=== PATIENT | female | born 1955 ===

== ENCOUNTER 2019-03-10 05:56 | Inpatient (IN) | payer SELFPAY ==
[2019-03-10] MEDS ORDERED: ASPIRIN PO ONE (06:25)
[2019-03-10] MEDS ORDERED: LOPRESSOR IV ONE ×3 (06:27→08:15)
--- NOTE | 2019-03-10 06:27 | Emergency Department Report ---
ED Chest Pain HPI - General Stated Complaint: BILATERAL LEG PAIN Time Seen by Provider: 03/10/19 06:24 Source: patient, EMS Mode of arrival: Stretcher Limitations: Language Barrier - History of Present Illness Initial Comments: Patient is 63-year-old female presents emergency room with complaints of chest pain radiating to her left arm. Patient also complains of left lower extremity pain. Patient states the pain is severe. History is difficult to do to language barrier. MD Complaint: chest pain -: Sudden Onset: during rest Pain Location: substernal, left chest Pain Radiation: LUE Severity: severe Consistency: constant - Related Data Home Medications Medication Instructions Recorded Confirmed Last Taken traMADol [Ultram] 50 mg PO TID PRN 03/10/19 03/10/19 Unknown Allergies Allergy/AdvReac Type Severity Reaction Status Date / Time No Known Allergies Allergy Verified 03/10/19 08:12 Heart Score - HEART Score History: Moderately suspicious EKG: Non-specific Age: 45-65 Risk factors: No known risk factors Troponin: < normal limit HEART Score: 3 ED Review of Systems ROS: Stated complaint: BILATERAL LEG PAIN Other details as noted in HPI Comment: language barrier ED Past Medical Hx - Past Medical History Previous Medical History?: Yes Hx Hypertension: Yes - Surgical History Past Surgical History?: No - Family History Family history: no significant - Social History Smoking Status: Unknown if ever smoked Substance Use Type: None - Medications Home Medications: Home Medications Medication Instructions Recorded Confirmed Last Taken Type traMADol [Ultram] 50 mg PO TID PRN 03/10/19 03/10/19 Unknown History ED Physical Exam - General Limitations: Language Barrier General appearance: alert, in no apparent distress - Head Head exam: Present: atraumatic, normocephalic - Eye Eye exam: Present: normal appearance - ENT ENT exam: Present: mucous membranes moist - Neck Neck exam: Present: normal inspection - Respiratory Respiratory exam: Present: normal lung sounds bilaterally. Absent: respiratory distress, wheezes, rales - Cardiovascular Cardiovascular Exam: Present: regular rate, normal rhythm. Absent: systolic murmur, diastolic murmur, rubs, gallop - GI/Abdominal GI/Abdominal exam: Present: soft, normal bowel sounds - Rectal Rectal exam: Present: deferred - Extremities Exam Extremities exam: Present: normal inspection - Back Exam Back exam: Present: normal inspection - Neurological Exam Neurological exam: Present: alert - Skin Skin exam: Present: warm, dry, intact, normal color. Absent: rash ED Course Vital Signs 03/10/19 03/10/19 03/10/19 06:21 06:27 06:31 Temperature 98.2 F Pulse Rate 102 H 94 H 94 H Pulse Rate [ Anterior Bilateral Throughout] Respiratory 38 H 23 22 Rate Respiratory Rate [Anterior Bilateral Throughout] Blood Pressure 201/83 201/83 201/83 Blood Pressure 201/83 [Left] O2 Sat by Pulse 88 100 100 Oximetry 03/10/19 03/10/19 03/10/19 06:36 06:45 06:52 Temperature Pulse Rate 93 H 95 H Pulse Rate [ Anterior Bilateral Throughout] Respiratory 31 H Rate Respiratory Rate [Anterior Bilateral Throughout] Blood Pressure 201/83 179/82 Blood Pressure [Left] O2 Sat by Pulse 88 100 Oximetry 03/10/19 03/10/19 03/10/19 07:01 07:15 07:31 Temperature Pulse Rate 94 H 97 H 95 H Pulse Rate [ Anterior Bilateral Throughout] Respiratory 17 20 30 H Rate Respiratory Rate [Anterior Bilateral Throughout] Blood Pressure 179/82 179/82 179/82 Blood Pressure [Left] O2 Sat by Pulse 98 97 96 Oximetry 03/10/19 03/10/19 03/10/19 07:43 07:45 08:00 Temperature 98.1 F Pulse Rate 94 H 90 88 Pulse Rate [ Anterior Bilateral Throughout] Respiratory 29 H 24 31 H Rate Respiratory Rate [Anterior Bilateral Throughout] Blood Pressure 191/83 171/85 Blood Pressure 191/83 [Left] O2 Sat by Pulse 98 97 97 Oximetry 03/10/19 03/10/19 03/10/19 08:15 08:25 08:31 Temperature Pulse Rate 91 H 94 H 70 Pulse Rate [ Anterior Bilateral Throughout] Respiratory 34 H 26 H Rate Respiratory Rate [Anterior Bilateral Throughout] Blood Pressure 183/85 191/83 201/86 Blood Pressure [Left] O2 Sat by Pulse 97 99 Oximetry 03/10/19 03/10/19 03/10/19 08:45 09:23 09:30 Temperature Pulse Rate 71 83 79 Pulse Rate [ Anterior Bilateral Throughout] Respiratory 13 29 H 22 Rate Respiratory Rate [Anterior Bilateral Throughout] Blood Pressure 201/86 189/91 164/75 Blood Pressure [Left] O2 Sat by Pulse 99 96 98 Oximetry 03/10/19 03/10/19 03/10/19 09:58 10:13 10:50 Temperature Pulse Rate 88 83 88 Pulse Rate [ 85 Anterior Bilateral Throughout] Respiratory 18 16 Rate Respiratory 20 Rate [Anterior Bilateral Throughout] Blood Pressure 205/98 Blood Pressure 205/98 142/70 [Left] O2 Sat by Pulse 100 98 Oximetry 03/10/19 14:13 Temperature Pulse Rate 76 Pulse Rate [ Anterior Bilateral Throughout] Respiratory 16 Rate Respiratory Rate [Anterior Bilateral Throughout] Blood Pressure Blood Pressure 160/82 [Left] O2 Sat by Pulse 96 Oximetry - Reevaluation(s) Reevaluation #1: Patient is currently wheezing. We are still unable to ascertain which limits the patient speaks and contact a ac/dc rewinder that has medicated with the patient. Head CT done since we are not quite sure the patient's baseline orientation. 03/10/19 09:15 Family is at bedside and states the patient is here because she's having left chest pain radiating to her left arm and bilateral leg pain. Patient also complains of bodyache. Patient denies fever and chills. Patient denies night sweats. Patient is A&OX3. Patient answers questions appropriately with her son translating. 03/10/19 09:53 Reevaluation #2: I discussed all results with patient and family. I discussed plan of care with patient and family. Patient and family agree with plan of care. Patient will be admitted to the hospitalist service. 03/10/19 10:58 - Consultations Consultation #1: Hospitalist consulted for admission. Hospitalist admit patient. Bridge orders placed. 03/10/19 09:56 JONY score - Jony Score Age > 65: (0) No Aspirin use within the Past 7 Days: (1) Yes 3 or more CAD Risk Factors: (1) Yes 2 or more Angina events in past 24 hrs: (1) Yes Known CAD with more than 50% Stenosis: (0) No Elevated Cardiac Markers: (0) No ST Deviation Greater than 0.5mm: (0) No JONY Score: 3 ED Medical Decision Making - Lab Data Result diagrams: 03/10/19 06:53 03/10/19 06:53 - EKG Data -: EKG Interpreted by [facility] EKG shows normal: sinus rhythm, axis, intervals, QRS complexes, ST-T waves Rate: normal - Radiology Data Radiology results: report reviewed, image reviewed CHEST 1 VIEW INDICATION: Chest Pain. COMPARISON: None FINDINGS: Support devices: None. Heart: Within normal limits. Lungs/Pleura: Scattered calcified granulomata and left apical pleural thickening versus consolidation. Right lung is otherwise clear. Additional findings: None. IMPRESSION: 1. Left apical findings as outlined above. Consider follow-up CT chest with contrast. DUPLEX DOPPLER LOWER EXTREMITY VEINS, BILATERAL INDICATION: Bilateral leg pain for one month, left greater than right. TECHNIQUE: Duplex doppler imaging was performed through the veins of both lower extremities using venous compression and other maneuvers. COMPARISON: No relevant prior imaging study available. FINDINGS: Right Common femoral vein: Negative. Right Superficial femoral vein: Negative. Right Popliteal vein: Negative. Right Calf veins: Negative. Left Common femoral vein: Negative. Left Superficial femoral vein: Negative. Left Popliteal vein: Negative. Left Calf veins: Negative. Additional findings: None.. IMPRESSION: No sonographic evidence for DVT in either lower extremity. CTA CHEST WITH CONTRAST INDICATION : Chest pain, hypoxia. TECHNIQUE: Axial imaging performed through the chest, with contrast bolus timing set to maximize opacification of the pulmonary arteries. Sagittal and coronal reformatted images. 3-plane MIP reformatted images were obtained. All CT scans at this location are performed using CT dose reduction for ALARA by means of automated exposure control. 100 mL of intravenous contrast administered. COMPARISON: None FINDINGS: Bolus: Contrast bolus timing is adequate. PTE: No filling defect is present to suggest PTE. Mediastinum: Heart and great vessels appear normal. No pathologic mediastinal adenopathy. Lungs: There is moderate chronic subpleural scarring and cystic bronchiectasis in the left apical region and superior lingula. This appears chronic. The remainder of the lungs are well-aerated. No underlying interstitial lung disease is appreciated. No pleural effusion or pneumothorax. Bones: Degenerative changes in the spine with nothing acute. Upper abdomen: Limited imaging of the upper abdomen shows nothing acute. IMPRESSION: No evidence for pulmonary embolus. Chronic scarring and bronchiectasis in the left upper lobe as described. CT HEAD WITHOUT CONTRAST INDICATION / CLINICAL INFORMATION: Altered mental status. TECHNIQUE: Axial imaging performed from the skull apex through the skull base w ithout the use of contrast. Sagittal and coronal reformatted images. All CT scans at this location are performed using CT dose reduction for ALARA by means of automated exposure control. COMPARISON: None available. FINDINGS: CEREBRAL PARENCHYMA: No significant abnormality. No acute territorial infarct. HEMORRHAGE: None. EXTRA-AXIAL SPACES: Normal in size and morphology for the patient's age. VENTRICULAR SYSTEM: Normal in size and morphology for the patient's age. MIDLINE SHIFT OR HERNIATION: None. CEREBELLUM / BRAINSTEM: No significant abnormality. CALVARIUM: No significant abnormality. ORBITS: Normal as visualized. PARANASAL SINUSES / MASTOID AIR CELLS: There is mild mucosal thickening throughout the right frontal, ethmoid and left maxillary sinus. The left mastoid air cells are hypoplastic. SOFT TISSUES of HEAD: No significant abnormality. ADDITIONAL FINDINGS: None. IMPRESSION: No acute intracranial abnormality. Mild chronic sinus disease. - Medical Decision Making Patient is a 63-year-old female that presents emergency room with complaints of chest pain and leg pain. Patient's orientation was difficult to establish due to language barrier and No family at bedside, So a CT of the head was done. CT is negative. Patient's family eventually showed up and helped with Beka Choi. Patient's CT of the chest negative for PE. Patient's chest x-ray shows a left upper lobe pneumonia. Patient's CTA shows chronic atelectasis and bronchiectasis. Patient given antibiotics. Patient admitted to the hospitalist service. Patient found to be initially hypoxic and placed on occiput. - Differential Diagnosis PE. Pneumonia. Chest pain. ACS. Critical Care Time: Yes Critical care attestation.: If time is entered above; I have spent that time in minutes in the direct care of this critically ill patient, excluding procedure time. Critical Care Time: 35 minutes ED Disposition Clinical Impression: Hypoxia, Leg pain, bilateral, Malignant hypertension Chest pain Qualifiers: Chest pain type: unspecified Qualified Code(s): R07.9 - Chest pain, unspecified Hypertension Qualifiers: Hypertension type: essential hypertension Qualified Code(s): I10 - Essential (primary) hypertension Pneumonia Qualifiers: Pneumonia type: due to unspecified organism Laterality: left Lung location: upper lobe of lung Qualified Code(s): J18.1 - Lobar pneumonia, unspecified organism Disposition: OP ADMIT IP TO THIS HOSP Is pt being admited?: Yes Does the pt Need Aspirin: No Condition: Critical Time of Disposition: 10:08
--- NOTE | 2019-03-10 07:01 | XRay Report ---
CHEST 1 VIEW INDICATION: Chest Pain. COMPARISON: None FINDINGS: Support devices: None. Heart: Within normal limits. Lungs/Pleura: Scattered calcified granulomata and left apical pleural thickening versus consolidation . Right lung is otherwise clear. Additional findings: None. IMPRESSION: 1. Left apical findings as outlined above. Consider follow-up CT chest with contrast. Signer Name: Case Adkins MD Signed: 03/10/2019 6:56 AM Workstation Name: [id number]
[2019-03-10 07:10] LABS: Basophils # (Auto) 0.1 K/mm3 (0.0-0.1); Eosinophils # (Auto) 0.9 K/mm3 (0.0-0.4); Eosinophils % (Auto) 9.7 % (0.0-4.3); Hematocrit 30.8 % (30.3-42.9); Hemoglobin 10.1 gm/dl (10.1-14.3); Lymphocytes # (Auto) 1.7 K/mm3 (1.2-5.4); Lymphocytes % (Auto) 17.9 % (13.4-35.0); Mean Corpuscular HGB Conc 33 % (30-34); Mean Corpuscular Volume 83 fl (79-97); Monocytes # (Auto) 0.7 K/mm3 (0.0-0.8); Monocytes % (Auto) 7.6 % (0.0-7.3); Platelet Count 385 K/mm3 (140-440); Red Blood Count 3.71 M/mm3 (3.65-5.03); Red Cell Distribution Width 15.4 % (13.2-15.2)
[2019-03-10 07:35] LABS: Alanine Aminotransferase 15 units/L (7-56); Albumin 3.4 g/dL (3.9-5); BUN/Creatinine Ratio 27; Blood Urea Nitrogen 19 mg/dL (7-17); Calcium 9.1 mg/dL (8.4-10.2); Hemolysis Index 6
[2019-03-10 08:39] LABS: Bilirubin,Urine NEG (Negative); Blood,Urine NEG (Negative); Color,Urine Straw (Yellow); Protein,Urine <15 mg/dL mg/dL (Negative); Urobilinogen,Urine < 2.0 mg/dL (<2.0); WBC,Urine < 1.0 /HPF (0.0-6.0)
[2019-03-10] MEDS ORDERED: MAXIPIME/NS 2 GM/100 ML 2 GM/100 ML BAG IV ONE (08:43)
--- NOTE | 2019-03-10 09:07 | Vascular Lab Report ---
DUPLEX DOPPLER LOWER EXTREMITY VEINS, BILATERAL INDICATION: Bilateral leg pain for one month, left greater than right. TECHNIQUE: Duplex doppler imaging was performed through the veins of both lower extremities using ve nous compression and other maneuvers. COMPARISON: No relevant prior imaging study available. FINDINGS: Right Common femoral vein: Negative. Right Superficial femoral vein: Negative. Right Popliteal vein: Negative. Right Calf veins: Negative. Left Common femoral vein: Negative. Left Superficial femoral vein: Negative. Left Popliteal vein: Negative. Left Calf veins: Negative. Additional findings: None.. IMPRESSION: No sonographic evidence for DVT in either lower extremity. Signer Name: Ceferino Ronquillo Jr, MD Signed: 03/10/2019 9:03 AM Workstation Name: [id number]
[2019-03-10] MEDS ORDERED: DUONEB *Not for PRN Use IH ONE (09:26)
[2019-03-10] MEDS ORDERED: SOLU-Medrol IV ONE (09:26)
--- NOTE | 2019-03-10 09:53 | Cat Scan Report ---
CT HEAD WITHOUT CONTRAST INDICATION / CLINICAL INFORMATION: Altered mental status. TECHNIQUE: Axial imaging performed from the skull apex through the skull base without the use of cont rast. Sagittal and coronal reformatted images. All CT scans at this location are performed using CT dose reduction for ALARA by means of automated exposure control. COMPARISON: None available. FINDINGS: CEREBRAL PARENCHYMA: No significant abnormality. No acute territorial infarct. HEMORRHAGE: None. EXTRA-AXIAL SPACES: Normal in size and morphology for the patient's age. VENTRICULAR SYSTEM: Normal in size and morphology for the patient's age. MIDLINE SHIFT OR HERNIATION: None. CEREBELLUM / BRAINSTEM: No significant abnormality. CALVARIUM: No significant abnormality. ORBITS: Normal as visualized. PARANASAL SINUSES / MASTOID AIR CELLS: There is mild mucosal thickening throughout the right frontal, ethmoid and left maxillary sinus. The left mastoid air cells are hypoplastic. SOFT TISSUES of HEAD: No significant abnormality. ADDITIONAL FINDINGS: None. IMPRESSION: No acute intracranial abnormality. Mild chronic sinus disease. Signer Name: Ceferino Ronquillo Jr, MD Signed: 03/10/2019 9:49 AM Workstation Name: [id number]
--- NOTE | 2019-03-10 09:56 | Cat Scan Report ---
CTA CHEST WITH CONTRAST INDICATION : Chest pain, hypoxia. TECHNIQUE: Axial imaging performed through the chest, with contrast bolus timing set to maximize opa cification of the pulmonary arteries. Sagittal and coronal reformatted images. 3-plane MIP reformatte d images were obtained. All CT scans at this location are performed using CT dose reduction for ALAR A by means of automated exposure control. 100 mL of intravenous contrast administered. COMPARISON: None FINDINGS: Bolus: Contrast bolus timing is adequate. PTE: No filling defect is present to suggest PTE. Mediastinum: Heart and great vessels appear normal. No pathologic mediastinal adenopathy. Lungs: There is moderate chronic subpleural scarring and cystic bronchiectasis in the left apical re gion and superior lingula. This appears chronic. The remainder of the lungs are well-aerated. No unde rlying interstitial lung disease is appreciated. No pleural effusion or pneumothorax. Bones: Degenerative changes in the spine with nothing acute. Upper abdomen: Limited imaging of the upper abdomen shows nothing acute. IMPRESSION: No evidence for pulmonary embolus. Chronic scarring and bronchiectasis in the left upper lobe as described. Signer Name: Ceferino Ronquillo Jr, MD Signed: 03/10/2019 9:52 AM Workstation Name: [id number]
[2019-03-10] MEDS ORDERED: APRESOLINE IV ONE (10:07)
[2019-03-10] MEDS ORDERED: DILAUDID IV ONE (10:20)
--- NOTE | 2019-03-10 12:40 | Consultation ---
History of Present Illness Consult date: 03/10/19 Reason for consult: chest pain Medications and Allergies Allergies Allergy/AdvReac Type Severity Reaction Status Date / Time No Known Allergies Allergy Verified 03/10/19 08:12 Home Medications Medication Instructions Recorded Confirmed Last Taken Type traMADol [Ultram] 50 mg PO TID PRN 03/10/19 03/10/19 Unknown History Physical Examination Vital signs: Vital Signs Temp Pulse Resp BP Pulse Ox 98.2 F 102 H 38 H 201/83 88 03/10/19 06:21 03/10/19 06:21 03/10/19 06:21 03/10/19 06:21 03/10/19 06:21 Results - Laboratory Findings CBC and BMP: 03/10/19 06:53 03/10/19 06:53 Abnormal lab findings: Abnormal Labs 03/10/19 03/10/19 06:53 06:53 MCH 27 L RDW 15.4 H [place] % (Auto) 7.6 H Eos % (Auto) 9.7 H Eos # 0.9 H BUN 19 H Glucose 109 H Total Protein 8.6 H Albumin 3.4 L
--- NOTE | 2019-03-10 15:22 | History and Physical Report ---
History of Present Illness Date of examination: 03/10/19 Date of admission: 03/10/19 10:16 Chief complaint: Chest pain Medications and Allergies Allergies Allergy/AdvReac Type Severity Reaction Status Date / Time No Known Allergies Allergy Verified 03/10/19 08:12 Home Medications Medication Instructions Recorded Confirmed Last Taken Type traMADol [Ultram] 50 mg PO TID PRN 03/10/19 03/10/19 Unknown History Exam - Physical Exam Narrative exam: Gen: Not in acute distress, lying in bed, HEENT: Normocephalic, atraumatic Neck: supple, no JVD Heart: S1 and S2 reg, no murmurs, rubs or gallop Lungs: Clear, no crackles, no rhonchi Abd: soft, non tender, non distended, normal BS, Ext: No edema, no clubbing, no cyanosis Neuro: awake,alert,oriented, moves all ext - Constitutional Vitals: Temp Pulse Resp BP Pulse Ox 98.1 F 76 16 160/82 96 03/10/19 07:43 03/10/19 14:13 03/10/19 14:13 03/10/19 14:13 03/10/19 14:13 Results - Labs CBC & Chem 7: 03/10/19 06:53 03/10/19 06:53 Labs: Abnormal lab results 03/10/19 03/10/19 Range/Units 06:53 06:53 MCH 27 L (28-32) pg RDW 15.4 H (13.2-15.2) % [place] % (Auto) 7.6 H (0.0-7.3) % Eos % (Auto) 9.7 H (0.0-4.3) % Eos # 0.9 H (0.0-0.4) K/mm3 BUN 19 H (7-17) mg/dL Glucose 109 H (65-100) mg/dL Total Protein 8.6 H (6.3-8.2) g/dL Albumin 3.4 L (3.9-5) g/dL Assessment and Plan Chest pain Admit to Tele Aspirin Keep NPO after midnight For stress test in am Hypertensive urgency Hydralazine iv prn Start Norvasc, Hydralazine Bronchiectasis left upper lobe Consult Pulm I discussed with Dr. Vang No antibiotics needed Full code status
[2019-03-10] MEDS ORDERED: ZOFRAN IV PRN (15:23)
[2019-03-10] MEDS ORDERED: PROVENTIL IH PRN (15:23)
[2019-03-10] MEDS ORDERED: MORPHINE IV PRN (15:23)
[2019-03-10] MEDS ORDERED: SODIUM CHLORIDE FLUSH SYRINGE 10 ML IV PRN (15:23)
[2019-03-10] MEDS ORDERED: TYLENOL PO PRN (15:23)
[2019-03-10] MEDS ORDERED: APRESOLINE IV PRN (15:25)
[2019-03-10] MEDS ORDERED: D5/0.45NS 1,000 ML IV SCH (16:00)
[2019-03-10] MEDS: NORVASC PO SCH (17:21)
[2019-03-10] MEDS: APRESOLINE PO SCH ×2 (17:21→22:55)
[2019-03-10] MEDS ORDERED: NITROSTAT SL PRN (19:40)
[2019-03-10] MEDS ORDERED: SODIUM CHLORIDE FLUSH SYRINGE 10 ML IV SCH (22:00)
[2019-03-10] MEDS: HEPARIN SUB-Q SCH (23:02)
[2019-03-11 05:19] LABS: Basophils % (Auto) 0.1 % (0.0-1.8); Hematocrit 30.9 % (30.3-42.9); Hemoglobin 10.1 gm/dl (10.1-14.3); Lymphocytes # (Auto) 1.2 K/mm3 (1.2-5.4); Lymphocytes % (Auto) 17.4 % (13.4-35.0); Mean Corpuscular HGB Conc 33 % (30-34); Mean Corpuscular Volume 83 fl (79-97); Monocytes # (Auto) 0.2 K/mm3 (0.0-0.8); Monocytes % (Auto) 2.7 % (0.0-7.3); Platelet Count 411 K/mm3 (140-440); Red Blood Count 3.71 M/mm3 (3.65-5.03); Red Cell Distribution Width 15.2 % (13.2-15.2)
[2019-03-11 05:29] LABS: BUN/Creatinine Ratio 38; Blood Urea Nitrogen 30 mg/dL (7-17); Calcium 8.9 mg/dL (8.4-10.2); Hemolysis Index 0
[2019-03-11] MEDS: APRESOLINE PO SCH ×2 (05:40→15:20)
[2019-03-11] MEDS: HEPARIN SUB-Q SCH ×2 (05:41→16:19)
[2019-03-11] MEDS ORDERED: LEXISCAN IV ONE ×2 (08:03→08:07)
[2019-03-11] MEDS ORDERED: TYLENOL ONE ×2 (08:14)
--- NOTE | 2019-03-11 09:52 | Treadmill Report ---
NUCLEAR CARDIAC IMAGING REPORT INDICATION FOR PROCEDURE: Chest pain. Informed consent was obtained. Vasodilator stress was achieved with the intravenous administration of 0.4 mg of Lexiscan per protocol. Rest and stress nuclear cardiac imaging was performed following the intravenous administration of technetium-99m Myoview per protocol. Gated SPECT imaging demonstrates a post-stress left ventricular ejection fraction of 74% with normal wall motion. Myocardial perfusion imaging demonstrates no significant stress-induced perfusion defects. Nuclear cardiac imaging demonstrates grossly normal post-stress left ventricular systolic function with no significant evidence of myocardial ischemia or necrosis. [facility]# [id number] ABHIJIT/SHREYAS
[2019-03-11] MEDS ORDERED: ECOTRIN PO SCH (10:00)
--- NOTE | 2019-03-11 11:18 | Progress Note ---
Assessment and Plan Acute Hypoxemic Respiratory Failure Chest Pain Possible Occult Pneumonia Abnormal CT Chest HTN - wean supplemental oxygen to keep O2 sat's > 90% - ACS work-up - prn bronchodilators with pulmonary hygiene per RT - follow clinically off AB's - prn analgesia - GI & VTE prophylaxis - Flu and pneumovax per protocol - home oxygen evaluation at discharge - outpatient pulmonary clinic f/up for PFT's and other evaluation - discharge planning ongoing concurrently ... re-evaluate in am & prn Subjective Date of service: 03/11/19 Principal diagnosis: Ac Hypoxemic Resp Failure; PNA; Chest Pain; HTN Interval history: Patient is seen today for: Acute Hypoxemic Resp Failure; Chest Pain; Possible Occult Pneumonia; Abnormal CT Chest; HTN Seen and examined at bedside; 24hour events reviewed; nursing and respiratory care staff consulted; no adverse overnight events reported to me; resting peacefully in bed; remains on supplemental oxygen; family in room; feels better; denies acute chest pains or palpitations; no hemoptysis; No N/V/F/C Objective Vital Signs - 12hr 03/11/19 03/11/19 03/11/19 03:52 05:40 08:31 Temperature Pulse Rate 86 95 H Respiratory Rate Blood Pressure 157/75 158/71 O2 Sat by Pulse Oximetry 03/11/19 03/11/19 03/11/19 08:40 08:41 08:43 Temperature Pulse Rate Respiratory Rate Blood Pressure 147/76 152/66 130/57 O2 Sat by Pulse Oximetry 03/11/19 03/11/19 03/11/19 08:45 08:47 08:57 Temperature Pulse Rate 81 Respiratory Rate Blood Pressure 125/57 130/57 O2 Sat by Pulse Oximetry 03/11/19 03/11/19 10:06 11:14 Temperature 98.4 F 97.9 F Pulse Rate 101 H 99 H Respiratory 18 18 Rate Blood Pressure 135/56 135/61 O2 Sat by Pulse 100 100 Oximetry Constitutional: no acute distress, other (elderly looking female, normocephalic and atraumatic with normal resp effort at rest) Eyes: non-icteric ENT: oropharynx moist, other (mallampati 2) Neck: supple, no lymphadenopathy, no JVD Effort: normal Ascultation: Bilateral: diminished breath sounds, rhonchi (DARBY predominant) Percussion: Bilateral: not dull Cardiovascular: regular rate and rhythm, other (No R/M) Gastrointestinal: normoactive bowel sounds, soft, non-tender, non-distended Integumentary: normal Extremities: no cyanosis, no edema, pink and warm, pulses normal, no ischemia or petechiae Neurologic: normal mental status, non-focal exam, pupils equal and round, CN II- XII normal, motor strength normal and Psychiatric: mood appropriate, affect normal CBC and BMP: 03/11/19 04:24 03/11/19 04:24 Abnormal lab findings: Abnormal Labs 03/10/19 03/10/19 03/11/19 06:53 06:53 04:24 MCH 27 L 27 L RDW 15.4 H [place] % (Auto) 7.6 H Eos % (Auto) 9.7 H Eos # 0.9 H Seg Neutrophils % 79.8 H BUN 19 H Glucose 109 H Total Protein 8.6 H Albumin 3.4 L 03/11/19 04:24 MCH RDW [place] % (Auto) Eos % (Auto) Eos # Seg Neutrophils % BUN 30 H Glucose 144 H Total Protein Albumin CT scan - chest: image reviewed (chronic DARBY bronchiectatic scarring; No P.E.) Allied health notes reviewed: nursing
[2019-03-11] MEDS: NORVASC PO SCH (11:30)
--- NOTE | 2019-03-11 14:05 | Discharge Summary ---
Providers - Providers Date of Admission: 03/10/19 10:16 Date of discharge: 03/11/19 Attending physician: CARMELLA WATERS 03/10/19 Consult to Cardiac Rehabilitation [CONS] Routine Reason For Exam: Phase I Consult to Case Management [CONS] Routine Services Needed at Discharge: Other Notified:: pillowcase maker Comment:: dc planning 03/10/19 12:25 Consult to Physician [CONS] Routine Comment: Consulting Provider: SHIVANI HATCH Physician Instructions: Reason For Exam: Bronchiectasis,hypoxia Primary care physician: JASON DICKINSON Hospitalization Condition: Fair Disposition: DC-01 TO HOME OR SELFCARE Exam - Constitutional Vitals: Temp Pulse Resp BP Pulse Ox 97.9 F 99 H 18 135/61 96 03/11/19 11:14 03/11/19 11:14 03/11/19 11:14 03/11/19 11:14 03/11/19 12:15 Plan Activity: advance as tolerated Diet: low fat, low cholesterol, low salt Plan of Treatment: 1.Follow up with PCP or [facility] in 1 week 2.Follow up with Liz Allred in 1 week Assessment: 1.Chest pain, non cardiac, musculoskeletal 2.Bronchiectasis left lung 3.Hypertensive urgency Follow up with: JASON DICKINSON MD [Primary Care Provider] - 3-5 Days Prescriptions: amLODIPine [Norvasc] 5 mg PO DAILY #30 tab
[2019-03-11 15:27] VITALS: BP 130/67
== END 2019-03-11 16:00 | disposition home or self-care (01) | DRG 189 ==
LOC: ED 05:56 → 4A 10:16
PROVIDERS: ADMIT Internal Medicine; ATTEND Internal Medicine
DX: J96.01 Acute respiratory failure with hypoxia (principal); R07.89 Other chest pain; I10 Essential (primary) hypertension; J47.9 Bronchiectasis, uncomplicated; I16.0 Hypertensive urgency
CPT/HCPCS: 36415; 70450; 71045; 71275; 78452; 80048; 80053; 81001; 84484; 85025; 87040; 93005; 93010; 93017; 93970; 94640; 94760; G0378; A9502; J0360; J0692; J1170; J1644; J2785; J2930; Q9967